=== PATIENT | female | born 1965 | race African-American/Black ===

== ENCOUNTER → 2019-10-20 | Day surgery (SDC) | payer OTHER ==
[~2019-10-20] MED LIST: ALBUTEROL0.63 MG/3 NEB; BIOTIN2500 MCG PO; CENTRUM SILVER1 EAC3 PO; HYDROCHLOROTHIA25 MG PO; PROPOFOL IV EMULSION 10 MG/ML 20 ML VIAL ONE; PROVENTIL HFA6.7 GM INH; VITAMIN D3250 MCG PO
[2019-10-20 15:00] VITALS: BP 152/78
== END | disposition home or self-care (01) ==
LOC: OR 10:00
PROVIDERS: ATTEND Internal Medicine Gastroenterology
DX: Z12.11 Encounter for screening for malignant neoplasm of colon (principal); D12.3 Benign neoplasm of transverse colon; D12.0 Benign neoplasm of cecum; D12.4 Benign neoplasm of descending colon; K59.00 Constipation, unspecified; K63.89 Other specified diseases of intestine; I10 Essential (primary) hypertension; J45.909 Unspecified asthma, uncomplicated; R73.03 Prediabetes; E66.01 Morbid (severe) obesity due to excess calories; F17.210 Nicotine dependence, cigarettes, uncomplicated; Z01.810 Encounter for preprocedural cardiovascular examination; Z01.812 Encounter for preprocedural laboratory examination; Z11.59 Encounter for screening for other viral diseases; Z68.41 Body mass index [BMI] 40.0-44.9, adult
CPT/HCPCS: 45380; 45384; 45385; 81025; 87635; 93005; J2704